=== PATIENT | female | born 1980 | race Caucasian/White ===

== ENCOUNTER 2016-07-27 13:57 | Outpatient (CLI) | payer OTHER ==
--- NOTE | 2016-07-27 15:57 | DIAGNOSTIC IMAGING REPORT ---
PROCEDURE: MR BRAIN WITHOUT CONTRAST INDICATION: HEADACHES; COGNITIVE CHANGES TECHNIQUE: Multiplanar multisequence MRI imaging of the brain without contrast. COMPARISON: None. FINDINGS: The midline structures are normally formed. The ventricular system is normal in size. Basal cisterns are patent. Flow voids in the major intracranial vessels are normal. Signal throughout the garcia and white matter is normal. No restricted diffusion to suggest acute ischemia. No evidence of acute or chronic intraparenchymal or extra-axial hemorrhage. No mass, mass effect, or midline shift. Normal signal in the visible bones. The sinuses are normally aerated. Visible extracranial soft tissues including the orbits are normal. IMPRESSION: 1. Normal MRI of the brain.
== END 2016-07-27 23:00 ==
LOC: MRI SRH 13:57
DX: G44.52 New daily persistent headache (NDPH) (principal)
CPT/HCPCS: 90074; 90837; 91585; 93045; 93140; 95059; 95150